=== PATIENT | male | born 1970 | race American Indian/Alaskan Native ===

== ENCOUNTER 2019-05-03 00:06 | Emergency (ER) | payer MEDICARE ==
[2019-05-03] MEDS ORDERED: HYDROmorphone 1 MG/1 ML INJ IM ONE (00:16)
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
[2019-05-03 00:20] VITALS: BP 97/49
== END 2019-05-03 01:00 | disposition left against medical advice (07) ==
LOC: ED 00:06
DX: M25.512 Pain in left shoulder (principal); W19.XXXA Unspecified fall, initial encounter; Y93.89 Activity, other specified; Y92.89 Other specified places as the place of occurrence of the external cause; Y99.8 Other external cause status